=== PATIENT | female | born 1960 | race Caucasian/White ===

== ENCOUNTER 2019-11-30 18:56 | Emergency (ER) | payer OTHER, SELFPAY ==
--- NOTE | 2019-11-30 19:01 | ED.WOUNDLAC ---
HPI - Wound/Laceration General Chief Complaint: Wound/Laceration Stated Complaint: non healing wound Time Seen by Provider: 11/30/19 19:24 Source: patient and RN notes reviewed Mode of arrival: ambulatory Limitations: no limitations History of Present Illness HPI narrative: 59-year-old female with poorly controlled diabetes presents with concern for nonhealing wounds on her back. Reports a history of similar wounds that have healed with nystatin cream. Reports she had a similar wound biopsied at some point in the past, does not know the results of that biopsy, did not follow-up. Reports they itch. Denies pain, drainage. Reports she has been putting Desitin on the wounds. She denies fever, malaise. Related Data Home Medications Medication Instructions Recorded Confirmed gabapentin 300 mg PO DAILY 11/30/19 11/30/19 insulin glargine [Basaglar KwikPen 100 unit SUBCUT DAILY 11/30/19 11/30/19 U-100 Insulin] insulin lispro [Admelog SoloStar 100 unit SUBCUT DAILY 11/30/19 11/30/19 U-100 Insulin] lisinopril 20 mg PO DAILY 11/30/19 11/30/19 metformin 1,000 mg PO DAILY 11/30/19 11/30/19 venlafaxine 75 mg PO DAILY 11/30/19 11/30/19 Allergies Allergy/AdvReac Type Severity Reaction Status Date / Time codeine Allergy Unknown Verified 11/30/19 19:12 Review of Systems Review of Systems: Narrative: CONSTITUTIONAL: Denies malaise, chills, sweats, or fever. CARDIOVASCULAR: Denies chest pain, palpitations, or edema. RESPIRATORY: Denies cough or dyspnea. GASTROINTESTINAL: Denies abdominal pain, nausea, vomiting, diarrhea SKIN: Reports to itchy wounds on her back that have been there for approximately 1 month MUSCULOSKELETAL: Denies myalgia. All systems reviewed & are unremarkable except as noted in HPI and below PMFSH Social History Social History Gender identity (if verbalized by the patient): Female Comments At time of signature, agree with nursing past medical, surgical, social and family history. There is no relevant family history pertinent to the presenting complaint Exam Narrative: Exam Narrative: GENERAL: Well-appearing, well-nourished, and in no acute distress. HEAD: Normocephalic EYES: PERRLA, conjunctivae clear ENT: Mucous membranes moist. NECK: Supple. CHEST: No respiratory distress. Speaks in full sentences. HEART: Regular rate and rhythm. SKIN: Warm, dry, no rash. 2 wounds in later stages of healing noted to the upper right handed back, wound beds are flat, with yellow scabs, surrounded by very mild erythema. No edema, induration, excoriation noted. NEURO: Alert and oriented x3. PSYCH: Normal mood and affect Course Course Emergency Course: Patient is aware of diagnosis, understands and agrees to treatment plan. Anticipatory guidance given. Patient agrees to follow-up as directed and is aware of reasons to seek care at the emergency department. Portions of this record may have been created with voice recognition software Vital Signs Vital signs: Vital Signs Temperature 99.0 F 11/30/19 19:07 Pulse Rate 113 H 11/30/19 19:07 Respiratory Rate 16 11/30/19 19:07 Blood Pressure 138/86 11/30/19 19:07 Pulse Oximetry 98 11/30/19 19:07 Temperature 99.0 F 11/30/19 19:07 Pulse Rate 113 H 11/30/19 19:07 Respiratory Rate 16 11/30/19 19:07 Blood Pressure 138/86 11/30/19 19:07 Pulse Oximetry 98 11/30/19 19:07 Reviewed. MDM - Wound/Laceration MDM Narrative Medical decision making narrative: Exam findings show no acute concerns or changes; patient is non-toxic appearing and is in no distress. Patient is appropriate for outpatient treatment and follow-up. Critical Care Time Critical Care Time Critical Care Time: No Discharge Plan Discharge Clinical Impression: Skin ulcer Qualifiers: Non-pressure ulcer stage: unspecified non-pressure ulcer stage Qualified Code(s): L98.499 - Non-pressure chronic ulcer of skin of other sites with unspecified severity Patient Disposi
[2019-11-30 19:07] VITALS: BP 138/86; PULSE 113; RESP 16; TEMP 37.2; O2SAT 98
== END 2019-11-30 19:29 | disposition home or self-care (01) ==
PROVIDERS: Emergency Provider Nurse Practitioner
DX: L98.429 Non-pressure chronic ulcer of back with unspecified severity (principal); F32.9 Major depressive disorder, single episode, unspecified; I10 Essential (primary) hypertension; E11.40 Type 2 diabetes mellitus with diabetic neuropathy, unspecified
CPT/HCPCS: 99213; G0463

== ENCOUNTER 2023-11-27 13:13 | Emergency (ER) | payer MEDICARE, SELFPAY ==
[2023-11-27 13:25] VITALS: BP 98/61; PULSE 109; RESP 20; TEMP 36.6; O2SAT 100
[2023-11-27] MEDS: ONDANSETRON HCL ODT 4 MG TABLET SUBLINGUAL (13:54)
--- NOTE | 2023-11-27 13:56 | ED.NAVMDI ---
HPI - Nausea/Vomiting/Diarrhea General Chief complaint: Abdominal Pain Stated complaint: Abdominal Pain/Vomiting Time Seen by Provider: 11/27/23 13:36 Source: patient and RN notes reviewed Mode of arrival: ambulatory Limitations: no limitations History of Present Illness HPI Narrative: Patient presents today complaining of nausea, vomiting, diarrhea, abdominal cramping. Symptoms began at 3:30 a.m. this morning. Patient vomited twice, last episode was at 4:00 a.m.. She has had 6 episodes of diarrhea that has been watery. Last episode was 2 hours prior to arrival. Denies blood or mucus in the stool. She has been able to keep water down since her last vomiting episode. Denies fever. So far today she has taken 6 Imodium. Believe she may be sick due to some tacos that were made by her daughter last night. No one else was ill, but she was the only person and that ate them. Patient is diabetic. She did give herself her insulin this morning. States her blood sugar has been running in the 230s. Related Data Home Medications Medication Instructions Recorded Confirmed gabapentin 300 mg capsule 300 mg PO DAILY 11/30/19 11/27/23 insulin glargine 100 unit/mL (3 100 unit subcut DAILY 11/30/19 11/27/23 mL) subcutaneous pen (Basaglar KwikPen U-100 Insulin) insulin lispro 100 unit/mL 100 unit subcut DAILY 11/30/19 11/27/23 subcutaneous pen (Admelog SoloStar U-100 Insulin lispro) lisinopril 20 mg tablet 20 mg PO DAILY 11/30/19 11/27/23 metformin 500 mg tablet 1,000 mg PO DAILY 11/30/19 11/27/23 venlafaxine 75 mg capsule,extended 75 mg PO DAILY 11/30/19 11/27/23 release 24 hr Allergies Allergy/AdvReac Type Severity Reaction Status Date / Time codeine Allergy Unknown Verified 11/27/23 13:15 Review of Systems Review of Systems: CONSTITUTIONAL: Denies body aches, fever, chills, or sweats. EYES: Denies visual changes, redness, or discharge. ENT: Denies rhinorrhea, congestion, sore throat, or otalgia. CARDIOVASCULAR: Denies chest pain, palpitations, or edema. RESPIRATORY: Denies cough or dyspnea. GASTROINTESTINAL: Nausea, vomiting, diarrhea, abdominal cramping GENITOURINARY: Denies dysuria or hematuria. SKIN: Denies rash, itching, or wounds. MUSCULOSKELETAL: Denies back pain, joint pain, or myalgia. NEUROLOGIC: Denies headache, numbness, tingling, or weakness. PSYCH: Denies depression or anxiety. [facility] Past Medical History Medical History (Updated 11/27/23 @ 14:02 by Lubna Roberto, HADLEY, ) Diabetes Social History Social History Gender identity (if verbalized by the patient): Female Comments At time of signature, I have reviewed and agree with nursing past medical, surgical, social and family history unless otherwise noted. Please see nursing chart for further information. There is no relevant family history pertinent to the presenting complaint Exam Narrative: GENERAL: Mildly ill-appearing, well-nourished, and in no acute distress. HEAD: Normocephalic, atraumatic. EYES: EOMI. No redness or drainage. Conjunctivae normal. ENT: Mucous membranes pink and moist. Nares clear. No rhinorrhea. TMs normal bilaterally. Throat normal. Uvula midline. Edentulous NECK: Normal AROM. Supple. No lymphadenopathy. CHEST: No respiratory distress. Clear to auscultation. HEART: Regular rate and rhythm. No murmur appreciated. ABDOMEN: Soft, nontender, nondistended, normal active bowel sounds. EXTREMITIES: Normal range of motion. No edema. SKIN: Warm, dry, no rash. Capillary refill normal. Normal skin turgor. NEURO: No focal deficits. Alert and oriented x3. Gait steady. PSYCH: Normal affect. No signs of depression or anxiety. Course Course Level of Care: Express Care Visit Vital Signs Vital signs: Vital Signs Temperature 97.8 F 11/27/23 13:25 Pulse Rate 109 H 11/27/23 13:25 Respiratory Rate 20 11/27/23 13:25 Blood Pressur
[2023-11-27 14:02] LABS: EDCOVIDSCREEN Negative (Negative); EDINFLUASCREEN Negative (Negative); EDINFLUBSCREEN Negative (Negative)
== END 2023-11-27 14:10 | disposition home or self-care (01) ==
PROVIDERS: Emergency Provider Nurse Practitioner
DX: R11.2 Nausea with vomiting, unspecified (principal); R19.7 Diarrhea, unspecified; Z20.822 Contact with and (suspected) exposure to COVID-19; E11.9 Type 2 diabetes mellitus without complications; Z79.4 Long term (current) use of insulin; Z79.84 Long term (current) use of oral hypoglycemic drugs
CPT/HCPCS: 87426; 87804; 99213; A9270; G0463

== ENCOUNTER 2024-07-22 10:04 | Emergency (ER) | payer MEDICARE, SELFPAY ==
[2024-07-22 10:12] VITALS: BP 134/80; PULSE 100; RESP 16; TEMP 36.5; O2SAT 97
--- NOTE | 2024-07-22 10:37 | ED.SKABFB ---
HPI - Skin/Abscess/Foreign Bdy General Chief complaint: Skin/Abscess/Foreign Body Stated complaint: Rash/Wound Check Time Seen by Provider: 07/22/24 10:05 Source: patient Mode of arrival: ambulatory Limitations: no limitations History of Present Illness HPI narrative: Patient is a 63 y/o female that presents with rash and itching to back. Patient states it started 06/13 and thinks it was primarily on the left shoulder. Patient states she has had similar rash in the past that left scaring on her back. Patient now has scabbed over wounds all over back from scratching. Patient states she has been using alcohol to help with the itching. Patient is also an uncontrolled diabetic and reports her blood sugars are 300-400 at baseline. Patient was seen by PCP 2 weeks ago and was told to use neosporin. Related Data Home Medications ?Medication ?Instructions ?Recorded ?Confirmed ?Last Taken ?Type insulin glargine 100 unit/mL (3 100 unit subcut DAILY 11/30/19 11/27/23 Unknown History mL) subcutaneous pen (Basaglar KwikPen U-100 Insulin) insulin lispro 100 unit/mL 100 unit subcut DAILY 11/30/19 11/27/23 Unknown History subcutaneous pen (Admelog SoloStar U-100 Insulin lispro) lisinopril 20 mg tablet 20 mg PO DAILY 11/30/19 11/27/23 Unknown History metformin 500 mg tablet 1,000 mg PO DAILY 11/30/19 11/27/23 Unknown History venlafaxine 75 mg capsule,extended 75 mg PO DAILY 11/30/19 11/27/23 Unknown History release 24 hr aspirin 81 mg chewable tablet 07/22/24 Unknown History Allergies Allergy/AdvReac Type Severity Reaction Status Date / Time codeine Allergy Vomiting Verified 07/22/24 10:18 strawberry AdvReac Swelling Verified 07/22/24 10:18 Review of Systems Review of Systems: All systems reviewed & are unremarkable except as noted in HPI and below Constitutional: Constitutional: Denies body ache(s), Denies chills, Denies fatigue, Denies fever(s), Denies headache(s), Denies malaise and Denies weakness Eyes: Eyes: Denies blurry vision, Denies irritation and Denies loss of vision ENT: Denies otalgia, Denies headache(s), Denies nasal discharge, Denies sinus pain and Denies sore throat Cardiovascular: Cardiovascular: Denies chest pain, Denies irregular heart rhythm and Denies dyspnea Respiratory: Respiratory: Denies dyspnea Gastrointestinal: Gastrointestinal: Denies abdominal pain, Denies melena, Denies hematochezia, Denies diarrhea, Denies nausea and Denies vomiting Musculoskeletal: Musculoskeletal: Denies back pain, Denies myalgias and Denies arthralgias Integumentary/Breasts: Skin/Breast: Reports pruritus, Reports rash and Reports wounds Neurologic: Denies headache(s), Denies loss of vision and Denies weakness Psychiatric: Psychiatric: Reports no additional psychiatric complaints Endocrine: Endocrine: Denies fatigue [facility] Past Medical History Medical History Diabetes Social History Social History Gender identity (if verbalized by the patient): Female Comments At time of signature, agree with nursing past medical, surgical, social and family history. There is no relevant family history pertinent to the presenting complaint. Exam Const: General: cooperative, healthy appearing, comfortable, no acute distress and well nourished Nutritional Appearance: well nourished Orientation/consciousness: patient oriented x3 Limitations: no limitations HENMT: Head: normal to inspection, normocephalic and atraumatic Ears: hearing grossly normal bilaterally and external ears normal Face/Nose/Sinus: Normal external nose present, normal facial exam and face symmetric Face and sinus: normal facial exam and face symmetric Mouth: Yes lip normal Eyes: General: appearance normal, both eyes and all related structures Alignment and Position: alignment normal and position normal Periorbital: periorbital findings normal Eyelids: eyelids normal Pupils: Equal, round and reactive pupils present EOM: EOMs intact bilaterally Neck: Neck: normal visual inspection, full ROM and supple Chest: Chest palpation & inspection: normal inspection of the chest Resp: Effort & Inspection: normal respiratory effort and able to speak in complete sentences Auscultation: clear to auscultation bilaterally Cardio: Rate: regular rate Rhythm: regular rhythm Heart sounds: S1 normal heart sound present and S2 normal heart sound present GI: Inspection: normal to inspection Skin: General skin exam: normal color Full body images:  1. area of rash with multiple scabbed lesions ranging in size of 1x1 cm to 2.5x2.5 cm. there is erythema surrounding each scab with mild induration. There is also pale discoloration throughout in roughly 2x2 cm patches. Neuro: General: patient oriented x3 and moves all extremities Cranial nerves: Yes Equal, round and reactive pupils present Speech: normal speech Gait exam (Neuro): Normal gait present Extrem: General: normal to inspection, full ROM and no edema Psych: Appearance: grossly normal and well kempt Mental Status: mental status grossly normal Speech and movement: Normal speech and movement present Affect: normal affect Attitude: cooperative Thought process: Normal thought process present Course Course Emergency Course: Patient is aware of diagnosis, understands and agrees to treatment plan. Anticipatory guidance given. Patient agrees to follow-up as directed and is aware of reasons to seek care at the emergency department. Portions of this record may have been created with voice recognition software Level of Care: Express Care Visit Vital Signs Vital signs: Vital Signs Temperature 36.5 C 07/22/24 10:12 Pulse Rate 100 07/22/24 10:12 Respiratory Rate 16 07/22/24 10:12 Blood Pressure 134/80 07/22/24 10:12 Pulse Oximetry 97 07/22/24 10:12 Oxygen Delivery Room Air 07/22/24 10:12 Temperature 36.5 C 07/22/24 10:12 Pulse Rate 100 07/22/24 10:12 Respiratory Rate 16 07/22/24 10:12 Blood Pressure 134/80 07/22/24 10:12 Pulse Oximetry 97 07/22/24 10:12 Oxygen Delivery Room Air 07/22/24 10:12 Reviewed MDM - Skin/Abscess/Foreign Bdy MDM Narrative Medical decision making narrative: Patient reports pale patches are scaring from previous rash. Appearance could also be a tinea versicolor and will treat accordingly. Will also treat with antibiotics due to scabs and infection surrounding them. Discussed in length that her uncontrolled diabetes is leading to prolonged wound healing and infection. Did prescribe steroid cream to help with itching, but advised patient that if it is making symptoms worse to stop using it and just use Aquaphor. Pt well hydrated appearing, in no respiratory distress, hemodynamically stable. Recommend supportive care. The patient is stable at time of discharge the clinical impression was discussed and the patient was given the opportunity to ask questions, which were addressed as completely as possible given the information available at present. Anticipatory guidance and return to care precautions were discussed and the importance of primary care follow-up was stressed and encouraged. The patient voiced understanding of the plan, indications to return, and the need for follow-up. Exam findings show no acute concerns or changes Patient is appropriate for outpatient treatment and follow-up. Differential Diagnosis Differential diagnosis: Likely viral exanthem, urticaria, cellulitis, eczema, insect bites, contact dermatitis and other (tinea versicolor) Medical Records Attestation: I reviewed the patient's medical records. Discharge Plan Discharge Clinical Impression: Infected wound Cellulitis Qualifiers: Site of cellulitis: trunk Site of cellulitis of trunk: back Qualified Code(s): L03.312 - Cellulitis of back [any part except buttock] Patient Disposition: Home Condition: Stable Instructions: Wound Infection (ED), Cellulitis (ED) Additional Instructions: Take antibiotic until it's gone. Take anti fungal medication once weekly for 2 weeks. You need to use Aquaphor throughout the day to keep skin moist. You may also use the steroid cream to help with itching. If it makes symptoms worse stop and use just Aquaphor. Clean with soap and water only; Avoid using alcohol and peroxide. Take Claritin, Zyrtec or Kendra in the morning along with Benadryl at night as they might help with itching For some people, adding oatmeal to a bath, applying cool wet compresses, and applying calamine lotion may help to relieve itching Alternate Tylenol/ibuprofen for as needed for pain Acetaminophen(Tylenol) 650-1000mg every 4-6hours with max of 4000mg/day. Nonsteroidal anti-inflammatory agent (NSAIDs-ibuprofen): 400mg every 4-6hours with max 2400mg/day Please schedule a follow up visit with your personal physician for further evaluation and treatment within 3-5days OR if your symptoms persist, change or worsen significantly before you can contact your personal physician then please, without delay, go to the emergency department for further evaluation. Patient Language: Turkmen Prescriptions: New fluconazole 150 mg tablet 300 mg PO ONCE Qty: 4 0RF Rx Instructions: take one dose today and second dose in one week. cephalexin 500 mg capsule 500 mg PO QID 7 Days Qty: 28 0RF triamcinolone acetonide 0.1 % cream 1 applic topical TID 5 Days Qty: 80 0RF No Action lisinopril 20 mg tablet 20 mg PO DAILY metformin 500 mg tablet 1,000 mg PO DAILY venlafaxine 75 mg capsule,extended release 24hr 75 mg PO DAILY insulin lispro [Admelog SoloStar U-100 Insulin] 100 unit/mL insulin pen 100 unit SUBCUT DAILY insulin glargine [Basaglar KwikPen U-100 Insulin] 100 unit/mL (3 mL) insulin pen 100 unit SUBCUT DAILY aspirin 81 mg tablet,chewable Follow-up/Referrals: Bk Barton MD [Physician] - 3 Days ([facility]) Time of Disposition: 10:49
== END 2024-07-22 10:56 | disposition home or self-care (01) ==
PROVIDERS: Emergency Provider Nurse Practitioner Family
DX: S21.202A Unspecified open wound of left back wall of thorax without penetration into thoracic cavity, initial encounter (principal); S21.201A Unspecified open wound of right back wall of thorax without penetration into thoracic cavity, initial encounter; L03.312 Cellulitis of back [any part except buttock and flank]; X58.XXXA Exposure to other specified factors, initial encounter; E11.9 Type 2 diabetes mellitus without complications; Z79.4 Long term (current) use of insulin; Z79.84 Long term (current) use of oral hypoglycemic drugs
CPT/HCPCS: 99213; G0463